=== PATIENT | male | born 1980 | race Hispanic/Latino ===

== ENCOUNTER 2017-03-18 21:42 | Emergency (ER) | payer OTHER ==
[2017-03-18] MEDS ORDERED: DiphenhydrAMINE 50 mg/ml Inj IVP STA ×2 (22:08→23:48)
[2017-03-18] MEDS ORDERED: Sodium Chloride 0.9% 1,000 ML IV STA (22:09)
[2017-03-18] MEDS ORDERED: DiphenhydrAMINE 50 mg/ml Inj ONE (22:12)
--- NOTE | 2017-03-18 22:31 | ED PDOC ---
HPI: Allergic Reaction Time Seen by Provider: 03/18/17 21:56 Chief Complaint (Nursing): Allergic Reaction Chief Complaint (Provider): Allergic reaction History Per: Patient History/Exam Limitations: no limitations Onset/Duration Of Symptoms: Mins Current Symptoms Are (Timing): Still Present Context: Food (cherries) Possible Cause: Food (ate cherries) Home/EMS Treatment: Benadryl (50 mg po prior to arrival) Additional History Per: Patient Additional Complaint(s): The patient is a 36yo male, presents to the ED for evaluation of bilateral eye swelling after eating cherries today. Patient reports he does not have any known allergies and denies any rash. Patient additionally denies any throat swelling or difficulty breathing. Patient states he drank Benadryl 50 mg PO 30 minutes prior to arrival with some relief. Patient currently without any medical complaints. Past Medical History Reviewed: Historical Data, Nursing Documentation, Vital Signs Vital Signs: Last Vital Signs Temp 97.4 F L 03/18/17 21:45 Pulse 97 H 03/18/17 21:45 Resp 18 03/18/17 21:45 BP 134/82 03/18/17 21:45 Pulse Ox 98 03/18/17 21:45 - Medical History PMH: No Chronic Diseases - Surgical History Surgical History: No Surg Hx - Family History Family History: States: No Known Family Hx - Home Medications Home Medications: Ambulatory Orders Medication Instructions Recorded Epinephrine HCl [Epipen 0.3 mg MR PRN PRN #2 03/19/17 Auto-Injector] predniSONE [predniSONE Tab] 20 mg PO DAILY #9 tab 03/19/17 - Allergies Allergies/Adverse Reactions: Allergies Allergy/AdvReac Type Severity Reaction Status Date / Time pollen extracts Allergy Mild watery Verified 03/18/17 21:48 eyes, rash Review of Systems ROS Statement: Except As Marked, All Systems Reviewed And Found Negative Eyes: Positive for: Eyelid Inflammation (bilateral ) ENT: Negative for: Throat Swelling Respiratory: Negative for: Shortness of Breath Physical Exam - Reviewed Nursing Documentation Reviewed: Yes Vital Signs Reviewed: Yes - Physical Exam Appears: Positive for: Well, Non-toxic, No Acute Distress Head Exam: Positive for: ATRAUMATIC, NORMAL INSPECTION, NORMOCEPHALIC Skin: Positive for: Normal Color, Warm Eye Exam: Positive for: Other (bilateral eyelid swelling noted) ENT: Positive for: Normal ENT Inspection. Negative for: Other (uvular swelling) Neck: Positive for: Normal, Supple Cardiovascular/Chest: Positive for: Regular Rate, Rhythm Respiratory: Positive for: Normal Breath Sounds. Negative for: Respiratory Distress Neurologic/Psych: Positive for: Alert, Oriented. Negative for: Motor/Sensory Deficits - ECG O2 Sat by Pulse Oximetry: 98 (RA) Pulse Ox Interpretation: Normal Disposition - Clinical Impression Clinical Impression: Allergic reaction - Disposition Referrals: [facility] [Outside] Disposition Time: 01:25 Condition: STABLE Prescriptions: Epinephrine HCl [Epipen Auto-Injector] 0.3 mg MR PRN PRN #2 PRN Reason: Anaphylaxis predniSONE [predniSONE Tab] 20 mg PO DAILY #9 tab Instructions: Food Allergy (ED), Anaphylaxis (ED), General Allergic Reaction ( ED) Medical Decision Making Medical Decision Making: Time: 2209 Impression: Allergic reaction Plan: -- Benadryl 25 mg IVP -- Pepcid 20 mg IVP -- Solumedrol 125 mg IVP -- IV Fluids Reassess 0125 Upon re-evaluation, patient's swelling has improved and the patient is feeling better. Patient is medically stable for discharge home.Patient will follow up with PMD. Return precautions given. Scribe Attestation: Documented by Feli Hicks acting as a scribe for John Paul Quiroz MD. Provider Attestation: All medical record entries made by the Scribe were at my direction and personally dictated by me. I have reviewed the chart and agree that the record accurately reflects my personal performance of the history, physical exam, medical decision making, and the department course for this patient. I have also personally directed, reviewed, and agree with the discharge instructions and disposition.
[2017-03-19] MEDS ORDERED: DiphenhydrAMINE 50 mg/ml Inj ONE (00:28)
[2017-03-19 01:20] VITALS: BP 131/76; PULSE 81; RESP 17; TEMP 98.2
[2017-03-19 01:37] VITALS: O2SAT 98
== END 2017-03-19 01:20 | disposition home or self-care (01) ==
LOC: H.ER 21:42
DX: T78.40XA Allergy, unspecified, initial encounter (principal)